=== PATIENT | male | born 1975 | race African-American/Black ===

== ENCOUNTER 2021-01-16 23:17 | Emergency (ER) | payer MEDICAID ==
[~2021-01-16] VITALS: Ht 177.8 cm; Wt 80.0 kg
[2021-01-16] MEDS ORDERED: TETANUS, DIPHTHERIA, PERTUSSIS VAC/PF 0.5ML (>7YR OLD) IM ONE (23:45)
[2021-01-16 23:50] VITALS: BP 167/95
== END 2021-01-17 01:19 ==
LOC: ER 23:17
DX: S61.511A Laceration without foreign body of right wrist, initial encounter (principal); R56.9 Unspecified convulsions; W26.8XXA Contact with other sharp object(s), not elsewhere classified, initial encounter; Y93.89 Activity, other specified; Y92.9 Unspecified place or not applicable
CPT/HCPCS: 73110; 90471; 90715; 99283

== ENCOUNTER 2022-03-29 05:43 | Inpatient (IN) | payer MEDICAID ==
[~2022-03-29] VITALS: Ht 177.8 cm; Wt 75.3 kg
[2022-03-29] MEDS ORDERED: KETOROLAC 30MG/ML VIAL IV STA (06:13)
[2022-03-29] MEDS ORDERED: ONDANSETRON HCL 4MG/2ML INJ IV STA (06:13)
[2022-03-29 08:31] LABS: HEMATOCRIT. 42.3 % (42.0-52.0); HEMOGLOBIN. 13.1 g/dL (14.0-18.0); MEAN CORPUSCULAR VOLUME 74.3 fL (80.0-94.0); MEAN PLATELET VOLUME 7.9 fl (7.4-10.4); PLATELET 306 x1000/uL (130-400); RED CELL DISTRIBUTION WIDTH 17.6 % (11.6-14.6)
[2022-03-29 08:39] LABS: CLARITY URINE CLEAR (CLEAR); COLOR URINE YELLOW (YELLOW); KETONES URINE NEGATIVE (NEGATIVE); LEUKOCYTE ESTERASE URINE NEGATIVE (NEGATIVE); NITRITE URINE NEGATIVE (NEGATIVE); OCCULT BLOOD URINE NEGATIVE (NEGATIVE); PROTEIN URINE 1+ (NEGATIVE); UROBILINOGEN URINE 0.2 E.U./dL (0.2-1.0)
[2022-03-29] MEDS ORDERED: PIPERACILLIN/TAZ 3.375G PREMIX 50 ML IV ONE (08:45)
[2022-03-29] MEDS ORDERED: VANCOMYCIN 1G PREMIX 200 ML IV ONE (08:45)
[2022-03-29 09:03] LABS: PLATELET ESTIMATE NORMAL
[2022-03-29 09:54] LABS: INR 1.1; PROTHROMBIN TIME 11.6 sec (9.6-11.0)
[2022-03-29] MEDS ORDERED: IPRATROPIUM/ALBUTEROL 0.5-3(2.5)MG/3ML NEB NEB PRN (10:45)
[2022-03-29] MEDS ORDERED: ACETAMINOPHEN 325MG TABLET PO PRN ×2 (10:45)
[2022-03-29] MEDS ORDERED: KETOROLAC 15MG/ML VIAL IV PRN (10:45)
[2022-03-29] MEDS ORDERED: DOCUSATE SODIUM 100MG CAPSULE PO PRN (10:45)
[2022-03-29] MEDS ORDERED: GUAIFENESIN 200MG/10ML SUGAR FREE UDC PO PRN (10:45)
[2022-03-29] MEDS ORDERED: ONDANSETRON HCL 4MG/2ML INJ IV PRN (10:45)
[2022-03-29] MEDS ORDERED: ZOLPIDEM TARTRATE 5MG TABLET PO PRN (10:45)
[2022-03-29] MEDS ORDERED: MAGNESIUM/ALUMINUM HYDROXIDE/SIMETHICONE 30ML UDC PO PRN (10:45)
[2022-03-29] MEDS ORDERED: NITROGLYCERIN 0.4MG TABLET SL SL PRN (10:45)
[2022-03-29] MEDS ORDERED: CLONIDINE 0.1MG TABLET PO PRN (10:45)
[2022-03-29 10:49] LABS: CHLORIDE 113 mEq/L (98-107)
[2022-03-29 10:57] LABS: *AMPHETAMINES SCREEN URINE PRESUMTIVE POSITIVE (NEGATIVE); *BARBITURATES SCREEN URINE NEGATIVE (NEGATIVE); *BENZODIAZEPINES SCREEN URINE NEGATIVE (NEGATIVE); *COCAINE SCREEN URINE NEGATIVE (NEGATIVE); CANNABINOID URINE SCREEN PRESUMTIVE POSITIVE (NEGATIVE); METHADONE URINE SCREEN NEGATIVE (NEGATIVE); OPIATES URINE SCREEN NEGATIVE (NEGATIVE); PHENCYCLIDINE URINE SCREEN PRESUMTIVE POSITIVE (NEGATIVE)
[2022-03-29 11:05] LABS: AMYLASE 80 IU/L (25-115); ETHANOL BLOOD < 10 mg/dL; HDL CHOLESTEROL 43 mg/dL (40-59); LDL CHOLESTEROL 38 mg/dL (5-100); T4 FREE 1.25 ng/dL (0.76-1.46); TOTAL IRON BINDING CAPACITY 306 ug/dL (250-450)
[2022-03-29 11:53] VITALS: BP 121/75
[2022-03-29 12:00] VITALS: BP 121/75
[2022-03-29] MEDS ORDERED: AZITHROMYCIN 500 MG in DEXT 5% WATER 250 ML IV SCH (12:00)
[2022-03-29] MEDS: PANTOPRAZOLE SODIUM 40 MG/VIAL IV SCH (12:53)
[2022-03-29] MEDS: ENOXAPARIN 40MG/0.4ML SYR SUBCUT SCH (12:54)
[2022-03-29] MEDS: DEXT 5%/LACTATED RINGERS 1,000 ML IV SCH (12:54)
[2022-03-29 13:38] LABS: VITAMIN B12 SERUM 326 pg/mL (211-911)
[2022-03-29 13:50] VITALS: BP 121/75
[2022-03-29] MEDS: AZITHROMYCIN 500 MG in DEXT 5% WATER 250 ML IV SCH (13:58)
[2022-03-29 16:00] VITALS: BP 128/93
[2022-03-29] MEDS: CEFTRIAXONE 1,000 MG in DEXTROSE 5% WATER 50 ML IV SCH (16:36)
[2022-03-29] MEDS ORDERED: CEFTRIAXONE 1 G PREMIX 50 ML IV SCH (17:00)
[2022-03-29 17:08] LABS: CREATINE KINASE MB FRACTION 7.1 ng/mL (0.5-3.6)
[2022-03-29 20:00] VITALS: BP 133/94
[2022-03-30 00:01] LABS: CREATINE KINASE MB FRACTION 5.2 ng/mL (0.5-3.6)
[2022-03-30 00:14] VITALS: BP 130/92
[2022-03-30] MEDS: DEXT 5%/LACTATED RINGERS 1,000 ML IV SCH ×2 (01:03→13:25)
[2022-03-30 04:00] VITALS: BP 138/91
[2022-03-30 08:00] VITALS: BP 149/86
[2022-03-30] MEDS: PANTOPRAZOLE SODIUM 40 MG/VIAL IV SCH (09:30)
[2022-03-30] MEDS: ENOXAPARIN 40MG/0.4ML SYR SUBCUT SCH (12:00)
[2022-03-30] MEDS: AZITHROMYCIN 500 MG in DEXT 5% WATER 250 ML IV SCH (14:00)
[2022-03-30] MEDS: CEFTRIAXONE 1,000 MG in DEXTROSE 5% WATER 50 ML IV SCH (15:00)
[2022-03-30 16:00] VITALS: BP 133/94
[2022-03-30 20:25] VITALS: BP 168/77
[2022-03-31] MEDS: DEXT 5%/LACTATED RINGERS 1,000 ML IV SCH (02:45)
[2022-03-31 07:39] LABS: HEMATOCRIT 40.9 % (42.0-52.0); HEMOGLOBIN 13.1 g/dL (14.0-18.0); MEAN CORPUSCULAR HEMOGLOBIN 23.1 pg (28.0-32.0); MEAN CORPUSCULAR VOLUME 72.6 fL (80.0-94.0); PLATELET 309 x1000/uL (130-400); RED BLOOD CELL COUNT 5.64 mill/uL (4.7-6.1); RED CELL DISTRIBUTION WIDTH 17.5 % (11.6-14.6)
[2022-03-31 08:24] LABS: CHLORIDE 113 mEq/L (98-107)
[2022-03-31 13:09] LABS: HEPATITIS B SURFACE ANTIGEN NEGATIVE
[2022-04-01] MEDS ORDERED: FAMOTIDINE 20MG/2ML VIAL IV SCH (09:00)
== END 2022-03-31 11:50 | disposition home or self-care (01) | DRG 812 ==
LOC: ER 05:50 → 7WST 09:19 → EDBEDREQ 09:20 → EDBEDREQTM 09:20
PROVIDERS: ADMIT Internal Medicine; ATTEND Internal Medicine
DX: T50.911A Poisoning by multiple unspecified drugs, medicaments and biological substances, accidental (unintentional), initial encounter (principal); G92.8 Other toxic encephalopathy; A04.9 Bacterial intestinal infection, unspecified; E87.20 Acidosis, unspecified; G40.909 Epilepsy, unspecified, not intractable, without status epilepticus; D72.825 Bandemia; Z20.822 Contact with and (suspected) exposure to COVID-19; K40.90 Unilateral inguinal hernia, without obstruction or gangrene, not specified as recurrent; K62.89 Other specified diseases of anus and rectum; F19.10 Other psychoactive substance abuse, uncomplicated; F12.90 Cannabis use, unspecified, uncomplicated; F20.9 Schizophrenia, unspecified; Z59.00 Homelessness unspecified
CPT/HCPCS: 36415; 71045; 74176; 80048; 80053; 80061; 80305; 80320; 81003; 82150; 82550; 82553; 82607; 82728; 82746; 83036; 83540; 83550; 83605; 84439; 84443; 84484; 85025; 85027; 86705; 86709; 86803; 87340; 87389; 87426; 93005; 93306; 93970; 99285; C9113; C9803; J0456; J0696; J1650; J1885; J2405; J2543; J3370; J7060; G0480

== ENCOUNTER 2022-05-01 02:53 | Emergency (ER) | payer MEDICAID ==
[~2022-05-01] VITALS: Ht 182.9 cm; Wt 80.0 kg
[2022-05-01] MEDS ORDERED: KETOROLAC 15MG/ML VIAL IV ONE (03:15)
[2022-05-01 05:43] LABS: BASOPHILS % 0.9 % (0.0-2.0); EOSINOPHILS % 0.7 % (0.0-5.0); HEMATOCRIT. 36.2 % (42.0-52.0); HEMOGLOBIN. 11.9 g/dL (14.0-18.0); LYMPHOCYTES % 24.4 % (20.0-50.0); MEAN CORPUSCULAR HEMOGLOBIN 23.5 pg (28.0-32.0); MEAN CORPUSCULAR VOLUME 71.7 fL (80.0-94.0); MONOCYTES % 6.1 % (2.0-8.0); NEUTROPHILS % 67.9 % (40.0-76.0); PLATELET 372 x1000/uL (130-400); RED BLOOD CELL COUNT 5.05 mill/uL (4.7-6.1); RED CELL DISTRIBUTION WIDTH 16.8 % (11.6-14.6)
[2022-05-01 05:47] LABS: CHLORIDE 112 mEq/L (98-107)
[2022-05-01 05:59] LABS: ETHANOL BLOOD < 10 mg/dL
[2022-05-01] MEDS ORDERED: KETOROLAC 15MG/ML VIAL IV SCH (06:45)
[2022-05-01] MEDS ORDERED: POLY10DR RIGHTEYE (07:29)
[2022-05-01] MEDS ORDERED: TOPUD PO (07:29)
[2022-05-01] MEDS ORDERED: POLY17PO3 PO (07:29)
[2022-05-01 07:31] VITALS: BP 138/100
== END 2022-05-01 08:25 | disposition home or self-care (01) ==
LOC: ER 02:53
DX: H10.9 Unspecified conjunctivitis (principal); R10.9 Unspecified abdominal pain; K59.00 Constipation, unspecified; Z98.890 Other specified postprocedural states
CPT/HCPCS: 36415; 74176; 80053; 80320; 83605; 83690; 85025; 96374; 99284; J1885; G0480

== ENCOUNTER 2022-05-13 05:04 | Emergency (ER) | payer MEDICAID ==
[~2022-05-13] VITALS: Ht 167.6 cm; Wt 90.0 kg
[~2022-05-13 05:04] MED LIST: POLY10DR RIGHTEYE; POLY17PO3 PO; TOPUD PO
[2022-05-13 05:20] VITALS: BP 158/94
== END 2022-05-13 08:06 | disposition home or self-care (01) ==
LOC: ER 05:10
DX: Z00.00 Encounter for general adult medical examination without abnormal findings (principal)
CPT/HCPCS: 99283